=== PATIENT | male | born 1940 | race Two or more races ===

== ENCOUNTER 2016-07-17 14:37 | Inpatient (IN) | payer OTHER ==
[~2016-07-17] VITALS: Ht 175.3 cm; Wt 70.3 kg
--- NOTE | 2016-07-17 14:45 | NUR ---
BLOOD SAMPLE COLLECTED SENT TO LAB
--- NOTE | 2016-07-17 14:45 | NUR ---
BBRA FROM HOME FOR SOB SINCE TODAY R LUNG CA, LAST TX ON THURSDAY. PLACED ON MONITOR. VSS . AWAITING MD ORDER. PT HAS RFA PICC LINE #18 PATENT AND INFUSING WELL.
--- NOTE | 2016-07-17 14:46 | NUR ---
PLACED ON 30% VENTI MASK @ 6LPM PER MD. SP02=99% TOLERATING WELL.
[2016-07-17] MEDS ORDERED: IV NS 0.9% 500 ML IV ONE ×2 (14:57→16:06)
[2016-07-17] MEDS ORDERED: IV SET PRIMARY PUMP SET 1 EA INFUS.SET MC ONE ×4 (14:57→20:05)
--- NOTE | 2016-07-17 14:57 | NUR ---
XRAY AT BEDSIDE
[2016-07-17] MEDS ORDERED: IV NS 0.9% 500 ML BAG IV ONE ×2 (15:00→16:00)
[2016-07-17 15:03] LABS: BASOPHILS # (AUTO) 0.1 /CMM (0.0-0.2); BASOPHILS % (AUTO) 0.9 % (0.0-2.0); EOSINOPHILS % (AUTO) 0.1 % (0.0-6.0); HEMATOCRIT 35 % (39-51); LYMPHOCYTES # (AUTO) 0.7 /CMM (0.8-4.8); LYMPHOCYTES % (AUTO) 6.3 % (20.0-44.0); MEAN CORPUSCULAR HEMOGLOBIN 31 PG (26.0-33.0); MEAN CORPUSCULAR HGB CONC 34 g/dl (31.0-36.0); MEAN CORPUSCULAR VOLUME 92 fL (80-96); MONOCYTES # (AUTO) 1.8 /CMM (0.1-1.30); MONOCYTES % (AUTO) 16.8 % (2.0-12.0); NEUTROPHILS # (AUTO) 8.3 /CMM (1.8-8.9); NEUTROPHILS % (AUTO) 75.9 % (43.0-81.0); PLATELET COUNT (AUTO) 142 /CMM (150-450); RDW COEFFICIENT OF VARIATION 15.8 (11.5-15.0); RED BLOOD CELL COUNT(AUTO) 3.83 MIL/uL (4.5-6.0); WHITE BLOOD COUNT (AUTO) 10.9 K/uL (4.3-11.0)
[2016-07-17 15:13] LABS: CALCIUM, SERUM 8.6 mg/dL (8.5-10.1); CARBON DIOXIDE 23 mmol/L (21-32); CHLORIDE 96 mmol/L (98-107); CREATININE 1.2 mg/dL (0.6-1.3); GLUCOSE 191 mg/dL (74-106); POTASSIUM 3.1 mmol/L (3.5-5.1); SODIUM SERUM 132 mmol/L (136-145); UREA NITROGEN, BLOOD 19 mg/dL (7-18)
[2016-07-17 15:21] LABS: TROPONIN I < 0.017 ng/mL (0.00-0.056)
[2016-07-17 15:22] LABS: INR 1.19 (0.87-1.13); PROTHROMBIN TIME 12.5 SECS (9.5-12.7)
[2016-07-17 15:26] LABS: ALANINE AMINOTRANSFERASE 23 U/L (12-78); ALBUMIN 3.5 g/dL (3.4-5.0); ALKALINE PHOSPHATASE 117 U/L (46-116); ASPARTATE AMINOTRANSFERASE 20 U/L (15-37); B-TYPE NATRIURETIC PEPTIDE 274 PG/ML (0-125); BILIRUBIN,DIRECT 0.2 mg/dL (0.0-0.2); TOTAL PROTEIN, SERUM 7.2 g/dL (6.4-8.2)
--- NOTE | 2016-07-17 15:35 | NUR ---
CALLED NURSING SUP. FOR JOSE BED
[2016-07-17 15:40] LABS: APPEARANCE,URINE Clear (CLEAR); BILIRUBIN,URINE Negative (NEGATIVE); BLOOD, URINE Trace-lysed Ery/uL (NEGATIVE); COLOR,URINE Yellow (YELLOW); KETONES,URINE Trace (NEGATIVE); LEUKOCYTE ESTERASE ,URINE Negative (NEGATIVE); NITRITE, URINE Negative (NEGATIVE); PH,URINE 6.5 (5.0-8.0); PROTEIN,URINE 30 mg/dl (NEGATIVE); UGLUCOSE Negative (NEGATIVE); UROBILINOGEN,URINE 0.2 EU/dL (0.2)
[2016-07-17 15:42] LABS: LACTIC ACID 2.4 mmol/L (0.4-2.0)
[2016-07-17] MEDS ORDERED: IOHEXOL-350 100 ML VIAL IV ONE (15:46)
[2016-07-17 15:55] LABS: ADD URINE CULTURE NO; BACTERIA,URINE Rare /HPF (None Seen); RBC,URINE 0-2 /HPF (0-2); SQUAMOUS EPITHELIAL CELL,UR Rare /HPF (None Seen); WBC,URINE 0-2 /HPF (0-3)
[2016-07-17] MEDS ORDERED: LEVOFLOXACIN 750 MG /D5W 150ML 150 ML IV ONE ×2 (16:00→16:06)
--- NOTE | 2016-07-17 16:01 | NUR ---
PT TAKEN TO CT VIA HANNAH
[2016-07-17 16:14] LABS: LYMPHOCYTES % (MANUAL) 4 % (16-48); MONOCYTES % (MANUAL) 10 % (0-11.0); NEUTROPHILS % (MANUAL) 86 (42-76); PLATELET ESTIMATE ADEQUATE
[2016-07-17] MEDS ORDERED: LORA0.5T PO (16:42)
[2016-07-17] MEDS ORDERED: LEVO500T90 PO (16:42)
[2016-07-17] MEDS ORDERED: FLUT1BLS IH (16:42)
[2016-07-17] MEDS ORDERED: TAMS-12 PO (16:42)
[2016-07-17] MEDS ORDERED: COMBIVENT RESPIMAT INH (16:42)
[2016-07-17] MEDS ORDERED: ETOP20VI IV (16:42)
[2016-07-17] MEDS ORDERED: CARB150V9 IV (16:42)
--- NOTE | 2016-07-17 17:09 | NUR ---
DR.BAHADORI CARVALHO
--- NOTE | 2016-07-17 17:39 | NUR ---
GAVE REPORT TO RODERICK RN JOSE [address] ABBIE RENO. SEPSIS PNA DX
[2016-07-17] MEDS ORDERED: FEE PK DOSING 1 MIN EA MC ONE (18:09)
[2016-07-17 18:14] VITALS: BP 133/70
[2016-07-17] MEDS ORDERED: ACETAMINOPHEN 325 MG TABLET PO PRN (18:30)
[2016-07-17] MEDS ORDERED: ALBUTEROL FS 2.5 MG/3 ML VIAL.NEB NEB PRN (18:30)
[2016-07-17] MEDS ORDERED: IPRATROPIUM NEB FS 0.5 MG/2.5 ML AMPUL.NEB NEB PRN (18:30)
[2016-07-17] MEDS ORDERED: SECONDARY IV SET 1 EA INFUS.SET MC ONE (18:48)
[2016-07-17] MEDS: IV D5/ 0.9% NACL 1,000 ML IV PRN (18:52)
[2016-07-17] MEDS: POTASSIUM CL. PREMIX PERIPHER. 50 ML IV SCH ×2 (18:52→20:09)
[2016-07-17] MEDS: methylPREDNISolone SOD SUCC 125 MG/2ML VIAL IV SCH (18:52)
[2016-07-17] MEDS: ENOXAPARIN SODIUM 40 MG/0.4 ML DISP.SYRIN SQ SCH (18:56)
[2016-07-17] MEDS ORDERED: VANCOMYCIN 1 GM in IV D5W 250 ML IV SCH (19:00)
[2016-07-17] MEDS: ALBUTEROL FS 2.5 MG/3 ML VIAL.NEB NEB SCH (19:30)
[2016-07-17] MEDS: IPRATROPIUM NEB FS 0.5 MG/2.5 ML AMPUL.NEB NEB SCH (19:30)
--- NOTE | 2016-07-17 19:45 | NUR ---
TELE TD: PT ON 6L VENTURI MASK AT 30% FI02. NOTED WT ST ON TELE MONITOR, HR= 120s-130s, RESTLESS DUE TO EPISODE OF BOWEL INCONTINENCE. PT TRYING TO CLEAN AFTER HIMSELF. TOLD HIM TO JUST CALM DOWN AND WE WILL CLEAN HIM AND VERBALIZED UNDERSTANDING. NOTED WT ROAN=699.2. COOLING MEASURES RENDERED WT GOOD SKIN/OSMAR CARE. SAFETY PRECAUTION NOTED. WILL CONTINUE TO MONITOR.
[2016-07-17 20:00] VITALS: BP 107/56
[2016-07-17] MEDS: ZOSYN IVPB 3.375 G in IV D5W 50ml IV SCH (20:09)
[2016-07-17] MEDS: VANCOMYCIN 1 GM in IV D5W 250 ML IV SCH (20:59)
--- NOTE | 2016-07-17 22:00 | NUR ---
TD RN: PT MORE ALERT AND AWAKE, ORIENTED X 3. CALM AND COOPERATIVE. TEMP=98.9 AT THIS TIME. SR ON TELE MONITOR. WILL CONTINUE TO MONITOR.
[2016-07-18] VITALS: BP 115/75
--- NOTE | 2016-07-18 01:37 | NUR ---
RT UNAWARE OF Q6 TX UNTIL Addendum: 07/18/16 at 0139 by AVI GAR RT UNTIL NURSE ADDRESSED ME FOR PAST DUE 1929 TX. WILL BEGGING TX ON NEXT SCHEDULED TIME 129.
[2016-07-18] MEDS: ALBUTEROL FS 2.5 MG/3 ML VIAL.NEB NEB SCH ×4 (01:43→20:12)
[2016-07-18] MEDS: IPRATROPIUM NEB FS 0.5 MG/2.5 ML AMPUL.NEB NEB SCH ×4 (01:43→20:11)
[2016-07-18] MEDS: ZOSYN IVPB 3.375 G in IV D5W 50ml IV SCH ×4 (02:24→19:34)
[2016-07-18] MEDS: methylPREDNISolone SOD SUCC 125 MG/2ML VIAL IV SCH ×3 (02:25→18:33)
[2016-07-18 04:00] VITALS: BP 94/48
[2016-07-18 06:34] LABS: BASOPHILS % (AUTO) 0.1 % (0.0-2.0); HEMATOCRIT 34 % (39-51); HEMOGLOBIN 11.4 g/dL (13.5-17.5); LYMPHOCYTES # (AUTO) 0.5 /CMM (0.8-4.8); LYMPHOCYTES % (AUTO) 4.6 % (20.0-44.0); MEAN CORPUSCULAR HEMOGLOBIN 31 PG (26.0-33.0); MEAN CORPUSCULAR HGB CONC 34 g/dl (31.0-36.0); MEAN CORPUSCULAR VOLUME 92 fL (80-96); MONOCYTES # (AUTO) 0.5 /CMM (0.1-1.30); MONOCYTES % (AUTO) 4.5 % (2.0-12.0); NEUTROPHILS # (AUTO) 9.7 /CMM (1.8-8.9); NEUTROPHILS % (AUTO) 90.8 % (43.0-81.0); PLATELET COUNT (AUTO) 117 /CMM (150-450); RED BLOOD CELL COUNT(AUTO) 3.63 MIL/uL (4.5-6.0); WHITE BLOOD COUNT (AUTO) 10.7 K/uL (4.3-11.0)
--- NOTE | 2016-07-18 06:45 | NUR ---
TD RN: PT REMAINED A/O X 3. CONTINUE ON VENTURI MASK AT 6L FI02 30% WT NO ACUTE DISTRESS, NO C/O PAIN. SR WT HR IN THE 80s. AFEBRILE. COOPERATIVE WT CARE. TOLERATING IVF AND ATB IV THERAPY WT NO ASE. GOOD URINE OUTPUT. ALL NEEDS MET. SAFETY PRECAUTION NOTED AT ALL TIMES.
--- NOTE | 2016-07-18 07:00 | NUR ---
RN INITIAL NOTES RECEIVED PT IN BED, AWAKE A/O X4, ABLE TO MAKE NEEDS KNOWN, PT IS ON VENTI MASK @ 30%, SATING WELL, NO S/S OF RESP. DISTRESS OR SOB NOTED AT THIS TIME, PT IS ON TELE MONITOR SHOWING SR W/ PVC @ 91 BPM, NO C/O OF CHEST PAIN OR DISCOMFORT AT THIS TIME, PT USES URINAL, PT IS NOTED WITH SKIN ISSUES, PT HAS RITA PICC, RUNNING D5NS @ 75ML/HR, C/D/I/PATENT, FLUSHING WELL, NO S/S OF INFECTION/ INFILTRATION NOTED AT THIS TIME, ALL SAFETY MEASURES IN PLACE AT ALL TIMES, CALL LIGHT WITHIN EASY REACH, WILL MONITOR PT CLOSELY FOR CHANGES
--- NOTE | 2016-07-18 07:35 | NUR ---
RN NOTES PT WAS PLACED ON 5L NC, SATING WELL, NO SOB OR RESP. DISTRESS NOTED AT THIS TIME, PT IS TOLERATING WELL AT THIS TIME, WILL MONITOR PT CLOSELY FOR CHANGES.
--- NOTE | 2016-07-18 07:51 | NUR ---
WOUND CARE CONSULT: PT PRESENTS WITH BRUISING AND DRY ABRASION TO BACK AND LEFT BUTTOCK, PRESENT ON ADMISSION. PT INDEPENDENT WITH BED MOBILITY AND CONTINENT AT THIS TIME. WILL SEE PRN. Addendum: 07/18/16 at 0753 by SYBIL LUX WNDNU Amended: Links added.
[2016-07-18 08:00] VITALS: BP 119/51
[2016-07-18] MEDS: PANTOPRAZOLE 40 MG TABLET.DR PO SCH (08:35)
[2016-07-18 08:37] LABS: POTASSIUM 3.4 mmol/L (3.5-5.1)
[2016-07-18] MEDS: VANCOMYCIN 1 GM in IV D5W 250 ML IV SCH ×2 (08:45→20:00)
--- NOTE | 2016-07-18 10:48 | NUR ---
RN NOTES PT NOTIFIED ME WITH SON AT BEDSIDE, HE WANTS TO BE DNI, PT WANTS CPR AND CHEMICAL MEDICATIONS, EXPLAINED AND ANSWERED ALL QUESTIONS, CALLED MD OFFICE, WILL F/U
[2016-07-18 12:00] VITALS: BP 119/51
[2016-07-18] MEDS ORDERED: POTASSIUM CHLORIDE 20 MEQ TAB.PRT.SR PO SCH (12:00)
[2016-07-18] MEDS: IV D5/ 0.9% NACL 1,000 ML IV PRN (13:05)
[2016-07-18 16:00] VITALS: BP 113/53
[2016-07-18 20:00] VITALS: BP 124/70
[2016-07-18] MEDS: ENOXAPARIN SODIUM 40 MG/0.4 ML DISP.SYRIN SQ SCH (21:06)
--- NOTE | 2016-07-18 22:15 | NUR ---
MS-1/FLOOR WAXER REPORT TO KIM ELIZABETH FOR CONT OF CARE.
--- NOTE | 2016-07-18 22:15 | NUR ---
received continuity of care from
[2016-07-19] MEDS: IPRATROPIUM NEB FS 0.5 MG/2.5 ML AMPUL.NEB NEB SCH ×4 (00:54→20:06)
[2016-07-19] MEDS: ALBUTEROL FS 2.5 MG/3 ML VIAL.NEB NEB SCH ×4 (00:54→20:06)
[2016-07-19] MEDS: ZOSYN IVPB 3.375 G in IV D5W 50ml IV SCH ×2 (02:08→08:51)
[2016-07-19] MEDS ORDERED: SECONDARY IV SET 1 EA INFUS.SET MC ONE (02:09)
[2016-07-19] MEDS: methylPREDNISolone SOD SUCC 125 MG/2ML VIAL IV SCH ×2 (02:09→21:16)
[2016-07-19 04:00] VITALS: BP 133/71
[2016-07-19] MEDS ORDERED: IV D5/ 0.9% NACL 1,000 ML IV ONE (06:16)
[2016-07-19] MEDS: IV D5/ 0.9% NACL 1,000 ML IV PRN (06:27)
[2016-07-19 07:03] LABS: BASOPHILS % (AUTO) 0.1 % (0.0-2.0); EOSINOPHILS % (AUTO) 0.1 % (0.0-6.0); HEMATOCRIT 32 % (39-51); HEMOGLOBIN 10.6 g/dL (13.5-17.5); LYMPHOCYTES # (AUTO) 0.6 /CMM (0.8-4.8); MEAN CORPUSCULAR HEMOGLOBIN 31 PG (26.0-33.0); MEAN CORPUSCULAR HGB CONC 34 g/dl (31.0-36.0); MEAN CORPUSCULAR VOLUME 93 fL (80-96); MONOCYTES # (AUTO) 0.2 /CMM (0.1-1.30); MONOCYTES % (AUTO) 2.1 % (2.0-12.0); NEUTROPHILS % (AUTO) 89.7 % (43.0-81.0); PLATELET COUNT (AUTO) 109 /CMM (150-450); RDW COEFFICIENT OF VARIATION 15.6 (11.5-15.0); WHITE BLOOD COUNT (AUTO) 7.8 K/uL (4.3-11.0)
[2016-07-19 07:23] LABS: CALCIUM, SERUM 8.3 mg/dL (8.5-10.1); CREATININE 1.2 mg/dL (0.6-1.3)
--- NOTE | 2016-07-19 07:26 | NUR ---
RN CLOSING NOTES NO SIGNIFICANT CHANGES OVERNIGHT, NO SOB, ANY RESPIRATORY DISTRESS NOTED, ON 3L O2 VIA NASAL CANNULA. PT KEPT CLEAN AND DRY, AND MOTIVATED OF SELF CARE. RITA PICC IS PATENT NO S/SX OF INFECTION/INFILTRATION NOTED. ALL NEEDS MET, ALL SAFETY MEASURES MAINTAINED, BED LOCKED AND IN LOWEST POSITION, CALL LIGHTS WITHIN REACH. Addendum: 07/19/16 at 0732 by YOLY STEINER RN ENDORSED TO AM NURSE FOR CONTINUATION OF CARE.
--- NOTE | 2016-07-19 07:30 | NUR ---
RN INITIAL NOTES: Received patient on bed during rounds, awake, alert and oriented x3-4, able to make needs known, call lights placed within reached, instructed to press call light when in need of any assistance, patient verbalized understanding of instructions. On O2 at 2LPM going on via nasal cannula saturating well. With RITA PICC flushed with NS and patent, with IVF D5 1/2 NS at 75cc/hr infusing well. NO SOB, No LOC, respirations are even and unlabored, no acute distress noted. Kept clean and dry. Provided safety and comfort measures.No Pain or discomfort noted at this time.To continue to monitor accordingly.
[2016-07-19 08:00] VITALS: BP_SYST 106; BP_SYST 130; BP_DIAS 53; BP_DIAS 84
[2016-07-19] MEDS: PANTOPRAZOLE 40 MG TABLET.DR PO SCH (08:50)
[2016-07-19] MEDS: VANCOMYCIN 1 GM in IV D5W 250 ML IV SCH (10:23)
[2016-07-19] MEDS ORDERED: IV NS 0.9% 250 ML IV ONE (10:34)
[2016-07-19] MEDS: PIPERACILLIN /TAZOBACTAM 4.5 G in IV D5W 50 ML IV SCH ×3 (11:45→23:27)
[2016-07-19] MEDS ORDERED: POTASSIUM CHLORIDE 20 MEQ TAB.PRT.SR PO ONE (12:30)
--- NOTE | 2016-07-19 13:22 | NUR ---
RN NOTES: At 0735hrs Lab staff called and informing Glucose level is 399, D5NS IVF turned off. Seen and examined by Dr. Sandhu today with orders noted and carried out. OK to dc IVF and decreased Solu-Medrol as ordered.
[2016-07-19 16:00] VITALS: BP 106/53
[2016-07-19] MEDS: VANCOMYCIN 0.75 GM in IV D5W 250 ML IV SCH (16:59)
--- NOTE | 2016-07-19 18:48 | NUR ---
RN NOTES: Patient remain stable within shift, no signs and symptoms of distress noted. Afebrile. Maintain HOB elevated, aspiration precaution observed. Encouraged increased oral fluid intake. Kept clean and dry. Fall precaution observed.To endorsed to next shift for continuity of care.
[2016-07-19 20:00] VITALS: BP_SYST 127; BP_SYST 130; BP_DIAS 67; BP_DIAS 80
[2016-07-19] MEDS: ENOXAPARIN SODIUM 40 MG/0.4 ML DISP.SYRIN SQ SCH (21:27)
[2016-07-20] MEDS: IPRATROPIUM NEB FS 0.5 MG/2.5 ML AMPUL.NEB NEB SCH ×4 (01:30→19:33)
[2016-07-20] MEDS: ALBUTEROL FS 2.5 MG/3 ML VIAL.NEB NEB SCH ×4 (01:31→19:33)
[2016-07-20] MEDS: VANCOMYCIN 0.75 GM in IV D5W 250 ML IV SCH ×3 (03:09→19:54)
[2016-07-20 04:00] VITALS: BP_SYST 121; BP_SYST 126; BP_DIAS 63
[2016-07-20] MEDS: PIPERACILLIN /TAZOBACTAM 4.5 G in IV D5W 50 ML IV SCH ×3 (05:05→18:00)
[2016-07-20 07:48] LABS: BASOPHILS % (AUTO) 0.1 % (0.0-2.0); HEMATOCRIT 32 % (39-51); HEMOGLOBIN 10.7 g/dL (13.5-17.5); LYMPHOCYTES # (AUTO) 0.5 /CMM (0.8-4.8); LYMPHOCYTES % (AUTO) 9.2 % (20.0-44.0); MEAN CORPUSCULAR HEMOGLOBIN 31 PG (26.0-33.0); MEAN CORPUSCULAR HGB CONC 33 g/dl (31.0-36.0); MEAN CORPUSCULAR VOLUME 92 fL (80-96); MONOCYTES # (AUTO) 0.2 /CMM (0.1-1.30); MONOCYTES % (AUTO) 4.5 % (2.0-12.0); NEUTROPHILS # (AUTO) 4.7 /CMM (1.8-8.9); NEUTROPHILS % (AUTO) 86.2 % (43.0-81.0); PLATELET COUNT (AUTO) 125 /CMM (150-450); RDW COEFFICIENT OF VARIATION 15.7 (11.5-15.0); RED BLOOD CELL COUNT(AUTO) 3.51 MIL/uL (4.5-6.0); WHITE BLOOD COUNT (AUTO) 5.5 K/uL (4.3-11.0)
--- NOTE | 2016-07-20 08:00 | NUR ---
RN AM NOTES RECEIVED PATIENT AWAKE, COOPERATIVE. NO SOB OR DISTRESS NOTED. MILD 3/10 LYING DOWN FOR TOO LONG,RELIEVED AFTER PATIENT AMBULATES TO TO SINK TO FRESHEN UP AND THEN BACK TO BED. TOLERATING IV INFUSIONS WELL, WITH NO S/S OF EDEMA. WILL CONTINUE TO MONITOR.
[2016-07-20 08:39] LABS: CALCIUM, SERUM 8.5 mg/dL (8.5-10.1); POTASSIUM 3.8 mmol/L (3.5-5.1)
[2016-07-20] MEDS: methylPREDNISolone SOD SUCC 125 MG/2ML VIAL IV SCH ×2 (09:36→20:11)
[2016-07-20] MEDS: PANTOPRAZOLE 40 MG TABLET.DR PO SCH (09:36)
[2016-07-20 10:00] VITALS: BP 121/63
[2016-07-20 12:00] VITALS: BP 121/63
[2016-07-20] MEDS ORDERED: IV SET PRIMARY PUMP SET 1 EA INFUS.SET MC ONE (15:43)
--- NOTE | 2016-07-20 19:31 | NUR ---
RN PM NOTES PATIENT IN BED SAFELY,IN STABLE CONDITION.TOLERATED IV INFUSION WELL. WILL ENDORSE TO NEXT SHIFT.
--- NOTE | 2016-07-20 19:55 | NUR ---
RN NOTES VANCO TROUGH = 23, DOSE HELD ORDERED
[2016-07-20 20:00] VITALS: BP 122/66
[2016-07-20] MEDS: LORAZEPAM 0.5 MG TABLET PO PRN (20:13)
[2016-07-20] MEDS: ENOXAPARIN SODIUM 40 MG/0.4 ML DISP.SYRIN SQ SCH (20:16)
--- NOTE | 2016-07-20 21:07 | NUR ---
RN NOTES SPOKE TO PHARMACIST LORRAINE VIA TELEPHONE, VANCOMYCIN LEVEL 1999 DOSE HELD, SCHEDULED FOR Q8H DOSING. PER LORRAINE, RECHECK VANCOMYCIN LEVEL @ 0500 WITH AM LABS, AND ADMINISTER IF WITHIN PARAMETERS
[2016-07-21] MEDS ORDERED: IV NS 0.9% 250 ML IV ONE (00:05)
[2016-07-21] MEDS: PIPERACILLIN /TAZOBACTAM 4.5 G in IV D5W 50 ML IV SCH ×4 (00:11→17:04)
[2016-07-21] MEDS: IPRATROPIUM NEB FS 0.5 MG/2.5 ML AMPUL.NEB NEB SCH ×4 (00:45→19:48)
[2016-07-21] MEDS: ALBUTEROL FS 2.5 MG/3 ML VIAL.NEB NEB SCH ×4 (00:45→19:48)
[2016-07-21 04:00] VITALS: BP 131/57
[2016-07-21 05:30] LABS: BASOPHILS % (AUTO) 0.3 % (0.0-2.0); HEMATOCRIT 33 % (39-51); HEMOGLOBIN 11.1 g/dL (13.5-17.5); LYMPHOCYTES # (AUTO) 0.5 /CMM (0.8-4.8); LYMPHOCYTES % (AUTO) 9.3 % (20.0-44.0); MEAN CORPUSCULAR HEMOGLOBIN 31 PG (26.0-33.0); MEAN CORPUSCULAR HGB CONC 34 g/dl (31.0-36.0); MEAN CORPUSCULAR VOLUME 92 fL (80-96); MONOCYTES # (AUTO) 0.1 /CMM (0.1-1.30); MONOCYTES % (AUTO) 2.4 % (2.0-12.0); NEUTROPHILS # (AUTO) 5.2 /CMM (1.8-8.9); PLATELET COUNT (AUTO) 144 /CMM (150-450); RDW COEFFICIENT OF VARIATION 15.9 (11.5-15.0); RED BLOOD CELL COUNT(AUTO) 3.61 MIL/uL (4.5-6.0); WHITE BLOOD COUNT (AUTO) 5.9 K/uL (4.3-11.0)
[2016-07-21 05:39] LABS: CALCIUM, SERUM 8.7 mg/dL (8.5-10.1); CREATININE 1.1 mg/dL (0.6-1.3); POTASSIUM 3.9 mmol/L (3.5-5.1)
[2016-07-21 05:40] LABS: MAGNESIUM 1.6 mg/dL (1.8-2.4)
[2016-07-21] MEDS: VANCOMYCIN 0.75 GM in IV D5W 250 ML IV SCH (06:53)
--- NOTE | 2016-07-21 07:00 | NUR ---
RN NOTES SPOKE TO PHARMACY REGARDING LATEST VANCOMYCIN LEVEL OF 9. PER PHARMACY, GIVE VANCO DOSE AND PHARMACY WILL ADJUST SCHEDULE TIMES. WILL ENDORSE THE PATIENT TO THE AM SHIFT NURSE FOR CONTINUITY OF CARE
--- NOTE | 2016-07-21 07:09 | NUR ---
RN NOTES RECEIVED PATIENT ON BED,A/Ox4 ,RESPIRATIONE AND UNLABORED, ON O2 AT 3L N/C , R UPPER ARM PICC LINE CDI, SR UP X3, BED LOCKED AND IN LOWEST POSITION , RECEIVING IV ABX AT THIS TIME , CONTINUE TO MONITOR PT CLOSELY NOTIFY MD FOR ANY INSIGNIFICANT CHANGES
[2016-07-21 08:00] VITALS: BP 134/69
[2016-07-21] MEDS: methylPREDNISolone SOD SUCC 125 MG/2ML VIAL IV SCH (08:29)
[2016-07-21] MEDS: PANTOPRAZOLE 40 MG TABLET.DR PO SCH (08:29)
[2016-07-21] MEDS ORDERED: predniSONE 20 MG TABLET PO SCH (10:00)
[2016-07-21] MEDS ORDERED: IV SET PRIMARY PUMP SET 1 EA INFUS.SET MC ONE (12:26)
[2016-07-21] MEDS: Magnesium 1GM/D5W 100ML PREMIX 100 ML IV SCH ×2 (12:28→13:48)
[2016-07-21] MEDS: LORAZEPAM 0.5 MG TABLET PO PRN (12:43)
[2016-07-21 16:00] VITALS: BP 144/81
[2016-07-21 16:05] VITALS: BP 144/81
[2016-07-21] MEDS: VANCOMYCIN 1 GM in IV D5W 250 ML IV SCH (17:56)
--- NOTE | 2016-07-21 18:15 | NUR ---
RN NOTES PT SITTING UP ON THE BED, STABLE , KATLIN ANY DISTRESS , MEDICATED PER MD ORDER , NO SIGNIFICANT CHANGES NOTED ON THIS SHIFT .
--- NOTE | 2016-07-21 19:30 | NUR ---
MS RN INITIAL NOTES RECEIVED PATIENT IN BED, AWAKE , ALERT AND ORIENTED X4, ABLE TO VERBALIZE NEEDS. PATIENT DENIES ANY PAIN/DISCOMFORT. RIGHT UPPER ARM PICC FLUSHED WITH NS, NOTED WITH GOOD VENOUS RETURN, TKO. POC DISCUSSED WITH THE PATIENT, WITH VERBALIZATION OF UNDERSTANDING. CALL LIGHT WITHIN EASY REACH, BED IN LOWEST AND LOCKED POSITION. WILL CONTINUE TO CLOSELY MONITOR
[2016-07-21 20:00] VITALS: BP 140/77
[2016-07-21] MEDS: ENOXAPARIN SODIUM 40 MG/0.4 ML DISP.SYRIN SQ SCH (21:15)
[2016-07-22] MEDS: PIPERACILLIN /TAZOBACTAM 4.5 G in IV D5W 50 ML IV SCH ×3 (01:24→11:12)
[2016-07-22] MEDS: IPRATROPIUM NEB FS 0.5 MG/2.5 ML AMPUL.NEB NEB SCH ×3 (01:43→13:13)
[2016-07-22] MEDS: ALBUTEROL FS 2.5 MG/3 ML VIAL.NEB NEB SCH ×3 (01:44→13:13)
[2016-07-22 04:00] VITALS: BP 103/60
[2016-07-22] MEDS: VANCOMYCIN 1 GM in IV D5W 250 ML IV SCH (06:24)
[2016-07-22 06:41] LABS: CALCIUM, SERUM 8.4 mg/dL (8.5-10.1); EOSINOPHILS % (AUTO) 0.4 % (0.0-6.0); HEMATOCRIT 35 % (39-51); HEMOGLOBIN 11.8 g/dL (13.5-17.5); LYMPHOCYTES # (AUTO) 1.8 /CMM (0.8-4.8); LYMPHOCYTES % (AUTO) 19.1 % (20.0-44.0); MAGNESIUM 1.6 mg/dL (1.8-2.4); MEAN CORPUSCULAR HEMOGLOBIN 31 PG (26.0-33.0); MEAN CORPUSCULAR HGB CONC 34 g/dl (31.0-36.0); MEAN CORPUSCULAR VOLUME 92 fL (80-96); MONOCYTES % (AUTO) 0.4 % (2.0-12.0); NEUTROPHILS # (AUTO) 7.5 /CMM (1.8-8.9); NEUTROPHILS % (AUTO) 80.1 % (43.0-81.0); PLATELET COUNT (AUTO) 148 /CMM (150-450); RDW COEFFICIENT OF VARIATION 15.2 (11.5-15.0); RED BLOOD CELL COUNT(AUTO) 3.84 MIL/uL (4.5-6.0); WHITE BLOOD COUNT (AUTO) 9.4 K/uL (4.3-11.0)
--- NOTE | 2016-07-22 07:00 | NUR ---
RN CLOSING NOTES PATIENT RESTING COMFORTABLY IN BED. WILL ENDORSE THE PATIENT TO THE AM SHIFT NURSE FOR TOMAS
[2016-07-22 08:00] VITALS: BP 126/72
--- NOTE | 2016-07-22 08:00 | NUR ---
MS RNNNOTE PATINT IN BED, ALL NEEDS ATTENDED, ON BREATHING TX ORDERED ALERT ,ORIENTED, NO SOB NOTED WITH OCCASIONAL PRODUCTIVE COUGH NOTED , BED IN LOWEST AND LOCKED POSITION , CALL LIGHT WITHIN REACH PLAN OF CARE DISCUSSED WITH PATIENT,RT UPPER ARM PICC LINE IN PLACE NO S\S INFECTION NOTED WILL CONT TO MONITOR CLOSELY
[2016-07-22] MEDS: PANTOPRAZOLE 40 MG TABLET.DR PO SCH (08:44)
[2016-07-22] MEDS ORDERED: predniSONE 20 MG TABLET PO SCH (09:00)
[2016-07-22] MEDS ORDERED: MAGNESIUM OXIDE 400 MG TABLET PO ONE (11:00)
[2016-07-22] MEDS: POTASSIUM CHLORIDE 20 MEQ TAB.PRT.SR PO SCH ×3 (11:12→13:56)
--- NOTE | 2016-07-22 11:30 | NUR ---
TABITHA ELIZABETH NOTE PER HOSPITAL PROTOCOL MRSA SWAB COLLECTED Addendum: 07/22/16 at 1211 by NICOLE AMOS RN HANNAH APPIAH
--- NOTE | 2016-07-22 12:00 | NUR ---
MS RN NOTE SEEN BY DR LEIVA WITH ORDER TO D\C HOME
--- NOTE | 2016-07-22 13:59 | NUR ---
TELE RNNOTE D\C INSTRUCTION GIVEN , UNDERSTOOD , PER ORDER DR LEIVA OK TO LEAVE PICC LINE IN PLACE, PX GIVEN ,UNDERSTOOD HOW TO TAKE NEW MEDS , POSSIBLE SIDE EFFECTS EXPLAINED, FELI HAS 02 AT HOME MAUREEN CASE MANAGE WILL ARRANGE HOME HEALTH FOR PATIENT, INSTRUCTED TO FOLLOW WITH PRIMARY CARE DOCTOR AND RETURN FOE ANY CONCERNS
--- NOTE | 2016-07-22 15:30 | NUR ---
MS RN NOTE SON IS ARRIVED , WENT HOME WITH OE WITH STABLE CONDITION , TAKEN TO CHARLIE WITH WHIP OPERATOR ON \C
== END 2016-07-22 15:21 | disposition home or self-care (01) | DRG 871 ==
LOC: ER 14:39 → TELE-TD 17:19 → MEDSG1 07-18 09:11
PROVIDERS: ADMIT Legal Medicine; ATTEND Legal Medicine
DX: A41.9 Sepsis, unspecified organism (principal); J18.9 Pneumonia, unspecified organism; J96.00 Acute respiratory failure, unspecified whether with hypoxia or hypercapnia; J44.1 Chronic obstructive pulmonary disease with (acute) exacerbation; J44.0 Chronic obstructive pulmonary disease with (acute) lower respiratory infection; J98.11 Atelectasis; C34.90 Malignant neoplasm of unspecified part of unspecified bronchus or lung; Z85.118 Personal history of other malignant neoplasm of bronchus and lung; R29.6 Repeated falls; Z87.891 Personal history of nicotine dependence; I10 Essential (primary) hypertension
CPT/HCPCS: 36415; 71010-TC; 80048-TC; 80076-TC; 80202-TC; 81000-TC; 83605-TC; 83735-TC; 83880; 84484-TC; 85025-TC; 85730-TC; 87040-TC; 87081-TC; 87086-TC; 94762-TC; 94799-TC; 97001-TC; A4606; J1650; J1956; J2543; J2930; J3370; J3475; J3480; J7040; J7042; J7050; J7060; Q9967; Z7610